=== PATIENT | female | born 1945 | race American Indian/Alaskan Native ===

== ENCOUNTER 2018-07-19 15:12 | Inpatient (IN) | payer MEDICARE ==
[2018-07-19 16:40] LABS: BASO # 0.1 K/uL (0.0-0.2); EOS # 0.1 K/uL (0.0-0.7); EOS % 1.6 % (0.0-4.0); HEMOGLOBIN 12.3 g/dL (11.0-16.0); LYMPH # 1.8 K/uL (1.0-4.3); LYMPH % 28.6 % (20.0-40.0); MEAN CELL VOLUME 85.9 fL (81.0-99.0); MEAN CORPUSCULAR HEMOGLOBIN 28.5 pg (27.0-31.0); MEAN CORPUSCULAR HGB CONC 33.2 g/dL (33.0-37.0); MEAN PLATELET VOLUME 8.2 fL (7.2-11.7); MONO # 0.6 K/uL (0.0-0.8); NEUT # 3.7 K/uL (1.8-7.0); NEUT % 59.8 % (50.0-75.0); RBC 4.33 Mil/uL (3.80-5.20); RED CELL DISTRIBUTION WIDTH 14.7 % (11.5-14.5); WHITE BLOOD COUNT 6.3 K/uL (4.8-10.8)
--- NOTE | 2018-07-19 16:52 | C.PDOC ---
History Of Present Illness 72-year-old female, presents to ED with with complaints of three-day duration of shortness of breath when she walks 1-2 blocks. Pt reports that shortness of breath improves when she rests. Normally she is able to walk 2-3 miles, and currently cannot do that. Pt was seen at Dr. Esquivel office today and was sent here for further evaluation. Denies chest pain, cough, fever, hemoptysis, back pain, or any other associated symptoms. Time Seen by Provider: 07/19/18 15:49 Chief Complaint (Nursing): Shortness Of Breath History Per: Patient History/Exam Limitations: no limitations Current Symptoms Are (Timing): Still Present Recent travel outside of the [place]: No Past Medical History Reviewed: Historical Data, Nursing Documentation, Vital Signs Vital Signs: Last Vital Signs Temp 98.1 F 07/19/18 15:22 Pulse 70 07/19/18 15:22 Resp 18 07/19/18 16:10 BP 145/85 07/19/18 15:22 Pulse Ox 93 L 07/19/18 17:22 - Medical History PMH: HTN Family History: States: No Known Family Hx - Social History Hx Alcohol Use: No Hx Substance Use: No - Immunization History Hx Tetanus Toxoid Vaccination: No Hx Influenza Vaccination: Yes Hx Pneumococcal Vaccination: No Review Of Systems Constitutional: Negative for: Fever, Chills Respiratory: Positive for: SOB with Excertion. Negative for: Cough Gastrointestinal: Negative for: Nausea, Vomiting Musculoskeletal: Negative for: Back Pain Neurological: Negative for: Weakness, Numbness Physical Exam - Physical Exam Appears: Non-toxic, No Acute Distress Skin: Normal Color, Warm, Dry, No Rash Head: Atraumatic, Normacephalic Eye(s): bilateral: Normal Inspection, PERRL, EOMI Nose: Normal Oral Mucosa: Moist Lips: Normal Appearing Neck: Normal ROM Chest: Symmetrical Cardiovascular: Rhythm Regular, No Murmur Respiratory: Normal Breath Sounds, No Decreased Breath Sounds, No Accessory Muscle Use, No Rales, No Rhonchi, No Wheezing Gastrointestinal/Abdominal: Soft, No Tenderness Extremity: Normal ROM, No Deformity Neurological/Psych: Oriented x3, Normal Speech ED Course And Treatment - Laboratory Results Result Diagrams: 07/19/18 16:35 07/19/18 16:35 ECG: Interpreted By Me, Viewed By Me ECG Rhythm: Sinus Rhythm ECG Interpretation: No Acute Changes Rate From EC O2 Sat by Pulse Oximetry: 93 Pulse Ox Interpretation: Abnormal - Radiology CXR: Interpreted by Me CXR Interpretation: Yes: No Acute Disease. No: Infiltrates Medical Decision Making Medical Decision Making: Plan: * CT Chest * Bloodwork * Chest X-Ray * Reassess and Disposition The case was discussed with Dr. Marion (PMD) who agrees to place the patient on tele Disposition - Disposition Disposition: HOSPITALIZED Disposition Time: 18:47 Condition: STABLE Forms: [employer] [facility] (German) - POA Present On Arrival: None - Clinical Impression Clinical Impression: Dyspnea - Scribe Statement The provider has reviewed the documentation as recorded by the Scribe (Ameya Batista) All medical record entries made by the Scribe were at my direction and personally dictated by me. I have reviewed the chart and agree that the record accurately reflects my personal performance of the history, physical exam, medical decision making, and the department course for this patient. I have also personally directed, reviewed, and agree with the discharge instructions and disposition.
[2018-07-19 16:53] LABS: ALB/GLOB RATIO 1.6 (1.0-2.1); ALBUMIN 4.4 g/dL (3.5-5.0); ALT/SGPT 28 U/L (9-52); AST/SGOT 25 U/L (14-36); BLOOD UREA NITROGEN 20 mg/dL (7-17); CALCIUM 10.4 mg/dl (8.6-10.4); GFR NON-AFRICAN AMERICAN > 60
--- NOTE | 2018-07-19 16:53 | RAD ---
Date of service: 07/19/2018 PROCEDURE: CHEST RADIOGRAPH, 1 VIEW HISTORY: SOB COMPARISON: None available. FINDINGS: LUNGS: No focal consolidation. PLEURA: No pneumothorax or pleural fluid seen. CARDIOVASCULAR: Atherosclerotic aortic calcifications. Cardiomediastinal silhouette enlarged. OSSEOUS STRUCTURES: Degenerative changes. VISUALIZED UPPER ABDOMEN: Normal. OTHER FINDINGS: None. IMPRESSION: No active disease.
[2018-07-19 17:05] LABS: B-TYPE NATRIURETIC PEPTIDE 637 pg/mL (0-900)
[2018-07-19] MEDS ORDERED: Iodixanol 320 MG/ML 100 ML BOTTLE IV ONE (17:26)
--- NOTE | 2018-07-19 17:58 | CT ---
Date of service: 07/19/2018 PROCEDURE: CT Chest with contrast (Pulmonary Angiogram) HISTORY: SOB, hypoxia COMPARISON: None available. TECHNIQUE: Axial computed tomography images were obtained of the chest in the pulmonary arterial phase of enhancement. Coronal and sagittal reformatted images were created and reviewed. Intravenous contrast dose: 100 mL Visipaque 320 Radiation dose: Total exam DLP = 483.3 mGy-cm. This CT exam was performed using one or more of the following dose reduction techniques: Automated exposure control, adjustment of the mA and/or kV according to patient size, and/or use of iterative reconstruction technique. FINDINGS: PULMONARY ARTERIES: Unremarkable. No pulmonary embolism. AORTA: No acute findings. Common origin of the brachiocephalic and left common carotid arteries. No thoracic aortic aneurysm. LUNGS: Small patchy opacities in the medial right lower lobe. No nodule, mass or pulmonary consolidation. PLEURAL SPACES: Trace right pleural effusion. No pneumothorax. HEART: Unremarkable. Cardiomegaly. No significant pericardial effusion. LYMPH NODES: No lymphadenopathy. BONES, CHEST WALL: Unremarkable. No fracture or destructive lesion OTHER FINDINGS: Unremarkable. IMPRESSION: Unremarkable CT pulmonary angiogram. No pulmonary embolus. Small patchy opacities in the medial right lower lobe, likely infectious/ inflammatory. Trace right pleural effusion.
--- NOTE | 2018-07-19 22:21 | CP.PCM.PN ---
Objective - Vital Signs/Intake and Output Vital Signs (last 24 hours): Temp Pulse Resp BP Pulse Ox 98.3 F 79 12 153/84 H 96 07/19/18 20:55 07/19/18 20:55 07/19/18 20:55 07/19/18 20:55 07/19/18 20:55 - Medications Medications: Current Medications Aspirin (Aspirin Chewable) 81 mg PO DAILY [facility] Enoxaparin Sodium (Lovenox) 40 mg SC DAILY [facility] Glimepiride (Amaryl) 2 mg PO ACB [facility] Insulin Human Regular (Novolin R) 0 unit SC ACHS [facility] PRN Reason: Protocol Lisinopril (Zestril) 20 mg PO DAILY [facility] Metformin HCl (Glucophage) 1,000 mg PO BIDCC [facility] Rosuvastatin Calcium (Crestor) 10 mg PO DAILY [facility] - Labs Labs: 07/19/18 16:35 07/19/18 16:35
[2018-07-19 23:11] LABS: CK-MB 0.58 ng/mL (0.0-3.38)
--- NOTE | 2018-07-19 23:21 | CP.PCM.CON ---
Past Patient History - Infectious Disease Hx of Infectious Diseases: None - Past Social History Smoking Status: Never Smoked - CARDIAC Hx Hypertension: Yes - ENDOCRINE/METABOLIC Hx Diabetes Mellitus Type 2: Yes - PSYCHIATRIC Hx Substance Use: No - SURGICAL HISTORY Hx Surgeries: No - ANESTHESIA Hx Anesthesia: No Meds Allergies/Adverse Reactions: Allergies Allergy/AdvReac Type Severity Reaction Status Date / Time No Known Allergies Allergy Verified 07/19/18 15:25 - Medications Medications: Current Medications Aspirin (Aspirin Chewable) 81 mg PO DAILY [facility] Enoxaparin Sodium (Lovenox) 40 mg SC DAILY [facility] Glimepiride (Amaryl) 2 mg PO ACB [facility] Insulin Human Regular (Novolin R) 0 unit SC ACHS [facility] PRN Reason: Protocol Lisinopril (Zestril) 20 mg PO DAILY [facility] Metformin HCl (Glucophage) 1,000 mg PO BIDCC [facility] Rosuvastatin Calcium (Crestor) 10 mg PO HS [facility] Results - Vital Signs Recent Vital Signs: Last Vital Signs Temp 98.3 F 07/19/18 20:55 Pulse 79 07/19/18 20:55 Resp 12 07/19/18 20:55 BP 153/84 H 07/19/18 20:55 Pulse Ox 96 07/19/18 20:55 - Labs Result Diagrams: 07/19/18 16:35 07/19/18 16:35 Labs: Laboratory Results - last 24 hr 07/19/18 07/19/18 07/19/18 16:35 16:35 22:34 WBC 6.3 RBC 4.33 Hgb 12.3 Hct 37.2 MCV 85.9 MCH 28.5 MCHC 33.2 RDW 14.7 H Plt Count 222 MPV 8.2 Neut % (Auto) 59.8 Lymph % (Auto) 28.6 Winkler % (Auto) 9.0 Eos % (Auto) 1.6 Baso % (Auto) 1.0 Neut # (Auto) 3.7 Lymph # (Auto) 1.8 Winkler # (Auto) 0.6 Eos # (Auto) 0.1 Baso # (Auto) 0.1 Sodium 142 Potassium 4.4 Chloride 105 Carbon Dioxide 30 Anion Gap 12 BUN 20 H Creatinine 0.7 Est GFR ( Amer) > 60 Est GFR (Non-Af Amer) > 60 Random Glucose 157 H Calcium 10.4 Total Bilirubin 1.2 AST 25 ALT 28 Alkaline Phosphatase 56 Total Creatine Kinase 83 CK-MB (Mass) 0.58 Troponin I < 0.0120 < 0.0120 NT-Pro-B Natriuret Pep 637 Total Protein 7.1 Albumin 4.4 Globulin 2.7 Albumin/Globulin Ratio 1.6
--- NOTE | 2018-07-20 05:37 | HP ---
Copied To: Pan Marion MD Attending MD: Pan Marion MD CHIEF COMPLAINT: Shortness of breath x3 days. HISTORY OF PRESENT ILLNESS: This is a 72-year-old female, well known to me with a history of hypertension, hyperlipidemia, nonsmoker, non-EtOH user who is compliant with her diet, medication, and followup. She also has a history of diabetes. The patient is normally able to walk and there is no limitation, but for the last few days, she has been able to walk only up to one block but even with that, she developed shortness of breath as she can barely carry herself too. She feels diaphoretic, weak, dizzy. She denied any chest pain or chest pressure. She denies any history of orthopnea or PND. She denies any history cough, sore throat, or running nose. According to the patient, she has a sister who is dying of multiple medical problems including malignancy, and she is not feeling well as well. She feels anxious. She feels depressed. She denied any cough, fever, hemoptysis, back pain, or any sneezing, itchy eyes or itchy nose. She denies any polyuria, polydipsia, or polyphagia. She denies any hematuria or pyuria. PAST MEDICAL HISTORY: Diabetes, hypertension, hyperlipidemia. SOCIAL HISTORY: Nonsmoker. Non-EtOH user. MEDICATIONS: Current medications at home are Zocor, metformin, lisinopril, Amaryl, and aspirin. PHYSICAL EXAMINATION: GENERAL: An elderly female in morbid distress, anxious. VITAL SIGNS: Blood pressure 126/72, pulse 73, respiratory rate 18, temperature 98. SKIN: Warm. Good turgor. No bruises. No purpura. No petechiae. HEENT: Atraumatic, normocephalic. Negative pallor. Negative jaundice. Extraocular movements are intact. NECK: Supple. No JVD. No lymph node. No thyromegaly. No carotid bruits. LUNGS: Bilaterally clear. No rales. No rhonchi. CARDIOVASCULAR SYSTEM: PMI in the fifth intercostal space. S1, S2 are regular. No heave. No thrill. ABDOMEN: Soft. Nontender. Bowel sounds are positive. No visceromegaly. RECTAL: Refused. PELVIS: Refused. EXTREMITIES: +1 pitting edema. ASSESSMENT: 1. The patient with a history of multiple problems. 2. Diabetes. 3. Hypertension. PLAN: 1. Admit. 2. Cardiac enzymes. 3. Echocardiogram. 4. Monitor the patient. Pan Marion MD
[2018-07-20 07:35] LABS: CK-MB 0.4 ng/mL (0.0-3.38); TROPONIN I 0.013 ng/mL (0.00-0.120)
[2018-07-20] MEDS: (Novolin R) Insulin Human Regular 100 units/ml vial SC SCH ×3 (08:34→21:20)
[2018-07-20] MEDS: Enoxaparin 40 mg Syringe SC SCH (09:37)
--- NOTE | 2018-07-20 14:54 | CP.PCM.PN ---
<Spencer Teresa - Last Filed: 07/20/18 18:03> Subjective - Date & Time of Evaluation Date of Evaluation: 07/20/18 Time of Evaluation: 15:56 - Subjective Subjective: PGY 3 Cardiology Progress Note- Dr. Louis's service Patient seen and examined in no apparent acute distress. Patient states that her shortness of breath occurred with activity. She denies specific chest pain or palpitations at this time. Objective - Vital Signs/Intake and Output Vital Signs (last 24 hours): Temp Pulse Resp BP Pulse Ox 98.6 F 66 18 131/87 98 07/20/18 08:31 07/20/18 08:31 07/20/18 08:31 07/20/18 08:31 07/20/18 12:00 Intake and Output: 07/20/18 07/20/18 06:59 18:59 Intake Total 100 Balance 100 - Medications Medications: Current Medications Aspirin (Aspirin Chewable) 81 mg PO DAILY [facility] Last Admin: 07/20/18 09:38 Dose: 81 mg Enoxaparin Sodium (Lovenox) 40 mg SC DAILY [facility] Last Admin: 07/20/18 09:37 Dose: 40 mg Glimepiride (Amaryl) 2 mg PO ACB [facility] Last Admin: 07/20/18 08:36 Dose: 2 mg Insulin Human Regular (Novolin R) 0 unit SC [facility] PRN Reason: Protocol Last Admin: 07/20/18 08:34 Dose: Not Given Lisinopril (Zestril) 20 mg PO DAILY [facility] Last Admin: 07/20/18 09:38 Dose: 20 mg Metformin HCl (Glucophage) 1,000 mg PO BIDCC [facility] Last Admin: 07/20/18 08:36 Dose: 1,000 mg Pneumococcal Polyvalent Vaccine (Pneumovax 23 Vaccine) 0.5 ml IM .ONCE ONE Stop: 07/21/18 10:01 Rosuvastatin Calcium (Crestor) 10 mg PO [facility] - Labs Labs: 07/19/18 16:35 07/19/18 16:35 - Constitutional Appears: Non-toxic, No Acute Distress - Head Exam Head Exam: ATRAUMATIC, NORMAL INSPECTION - Eye Exam Eye Exam: EOMI, Normal appearance - ENT Exam ENT Exam: Mucous Membranes Moist - Neck Exam Neck Exam: Full ROM - Respiratory Exam Respiratory Exam: NORMAL BREATHING PATTERN - Cardiovascular Exam Cardiovascular Exam: +S1, +S2 - GI/Abdominal Exam GI & Abdominal Exam: Soft, Normal Bowel Sounds - Extremities Exam Extremities Exam: Full ROM, Normal Capillary Refill - Back Exam Back Exam: Full ROM, NORMAL INSPECTION - Neurological Exam Neurological Exam: Alert, Awake, Oriented x3 - Psychiatric Exam Psychiatric exam: Normal Affect, Normal Mood - Skin Skin Exam: Dry, Normal Color, Warm Assessment and Plan (1) Dyspnea Assessment & Plan: SINGH negative x 3 BNP- 637 negative EKG shows NSR at this time with signs of prior inferior infarct . Prior EKGs reviewed in the record as far back as 2011 and 2008 which show similar changes. In light of continued dyspnea with activity, need to rule out cardiac etiology. Will schedule for Stress testing at this time. F/U Echo Report. On prelim view- there are signs of questionable dilation of ascending aorta. Chest XRAY performed- haziness noted in the lower lung hodgson. Costophrenic angles not clearly noted. Chest CT- Trace right pleural effusion noted. Cardiomegaly noted. No significant pericardial effusion. No appreciable pulmonary emboli noted. There are signs of questionable dilation of thoracic aorta. Will need to follow up with radiology for a second reading to confirm. Status: Chronic (2) Diabetes mellitus Assessment & Plan: Metformin 1,000 mg PO BID Glimepiride 2 mg PO daily Zestril 20 mg daily Accuchecks Status: Chronic (3) Prophylactic measure Assessment & Plan: SCDs No GI Prophylaxis indicated at this time Status: Acute <Eddie Louis - Last Filed: 07/20/18 21:42> Objective - Vital Signs/Intake and Output Vital Signs (last 24 hours): Temp Pulse Resp BP Pulse Ox 97.7 F 69 20 147/86 98 07/20/18 15:00 07/20/18 15:00 07/20/18 15:00 07/20/18 15:00 07/20/18 15:00 - Medications Medications: Current Medications Aspirin (Aspirin Chewable) 81 mg PO DAILY [facility] Last Admin: 07/20/18 09:38 Dose: 81 mg Enoxaparin Sodium (Lovenox) 40 mg SC DAILY [facility] Last Admin: 07/20/18 09:37 Dose: 40 mg Glimepiride (Amaryl) 2 mg PO ACB [facility] Last Admin: 07/20/18 08:36 Dose: 2 mg Insulin Human Regular (Novolin R) 0 unit SC [facility] PRN Reason: Protocol Last Admin: 07/20/18 21:20 Dose: Not Given Lisinopril (Zestril) 20 mg PO DAILY [facility] Last Admin: 07/20/18 09:38 Dose: 20 mg Metformin HCl (Glucophage) 1,000 mg PO BIDCC [facility] Last Admin: 07/20/18 18:00 Dose: 1,000 mg Pneumococcal Polyvalent Vaccine (Pneumovax 23 Vaccine) 0.5 ml IM .ONCE ONE Stop: 07/21/18 10:01 Rosuvastatin Calcium (Crestor) 10 mg PO [facility] Last Admin: 07/20/18 21:19 Dose: 10 mg - Labs Labs: 07/19/18 16:35 07/19/18 16:35 Assessment and Plan - Assessment and Plan (Free Text) Assessment: Patient seen and evaluated personally by vt Plan of care d/w the medical or surgical instrument maker and as documented
--- NOTE | 2018-07-20 18:21 | CARD ---
APPROVED REPORT Date of service: 07/20/2018 EXAM: Two-dimensional and M-mode echocardiogram with Doppler and color Doppler. Other Information Quality : GoodRhythm : INDICATION Dyspnea 2D DIMENSIONS IVSd1.2 (0.7-1.1cm)LVDd4.4 (3.9-5.9cm) PWd1.2 (0.7-1.1cm)LVDs3.2 (2.5-4.0cm) FS (%) 27.3 %LVEF (%)53.4 (>50%) M-Mode DIMENSIONS Left Atrium (MM)3.87 (2.5-4.0cm)IVSd1.16 (0.7-1.1cm) Aortic Root3.39 (2.2-3.7cm)LVDd5.32 (4.0-5.6cm) Aortic Cusp Exc.2.61 (1.5-2.0cm)PWd1.18 (0.7-1.1cm) FS (%) 30 %LVDs3.74 (2.0-3.8cm) LVEF (%)56 (>50%) Aortic Valve AI P 1/2 [id number] Mitral Valve MV E Yvdgdarg58.1cm/sMV A Gnfbpfzc48.3cm/sE/A ratio1.3 TDI E/Lateral E'0.0E/Medial E'0.0 Tricuspid Valve TR Peak [id number]/sTR Peak Gr.[id number] LEFT VENTRICLE The Left Ventricle is mildly dilated. There is normal left ventricular wall thickness. The left ventricular systolic function is normal. The left ventricular ejection fraction is within the normal range. There is normal LV segmental wall motion. The left ventricular diastolic function is normal. RIGHT VENTRICLE The right ventricle is normal size. The right ventricular systolic function is normal. ATRIA The left atrium is borderline dilated. The right atrium size is normal. AORTIC VALVE The aortic valve is slightly calcified but opens well. There is trace aortic regurgitation. MITRAL VALVE The mitral valve is normal in structure. Mitral regurgitation is trace to mild. TRICUSPID VALVE The tricuspid valve is normal in structure. There is moderate tricuspid regurgitation. Right ventricular systolic pressure is estimated at - 42 mmHg. There is mild pulmonary hypertension. PULMONIC VALVE The pulmonary valve is normal in structure. There is mild pulmonic valvular regurgitation. GREAT VESSELS The aortic root displays mild to moderate sclerocalcific changes The IVC is normal in size and collapses >50% with inspiration. PERICARDIAL EFFUSION There is no pericardial effusion. <Conclusion> The Left Ventricle is mildly dilated. Normal bi-ventricular function The left atrium is borderline dilated. There is trace aortic regurgitation. Mitral regurgitation is trace to mild. There is moderate tricuspid regurgitation. Right ventricular systolic pressure is estimated at - 42 mmHg compatible with mild pulmonary hypertension. The aortic root displays mild to moderate sclerocalcific changes There is no pericardial effusion.
--- NOTE | 2018-07-20 23:19 | CP.PCM.PN ---
Objective - Vital Signs/Intake and Output Vital Signs (last 24 hours): Temp Pulse Resp BP Pulse Ox 97.7 F 69 20 147/86 98 07/20/18 15:00 07/20/18 15:00 07/20/18 15:00 07/20/18 15:00 07/20/18 15:00 - Medications Medications: Current Medications Aspirin (Aspirin Chewable) 81 mg PO DAILY [facility] Last Admin: 07/20/18 09:38 Dose: 81 mg Enoxaparin Sodium (Lovenox) 40 mg SC DAILY [facility] Last Admin: 07/20/18 09:37 Dose: 40 mg Glimepiride (Amaryl) 2 mg PO ACB [facility] Last Admin: 07/20/18 08:36 Dose: 2 mg Insulin Human Regular (Novolin R) 0 unit SC [facility] PRN Reason: Protocol Last Admin: 07/20/18 21:20 Dose: Not Given Lisinopril (Zestril) 20 mg PO DAILY [facility] Last Admin: 07/20/18 09:38 Dose: 20 mg Metformin HCl (Glucophage) 1,000 mg PO BIDCC [facility] Last Admin: 07/20/18 18:00 Dose: 1,000 mg Pneumococcal Polyvalent Vaccine (Pneumovax 23 Vaccine) 0.5 ml IM .ONCE ONE Stop: 07/21/18 10:01 Rosuvastatin Calcium (Crestor) 10 mg PO [facility] Last Admin: 07/20/18 21:19 Dose: 10 mg - Labs Labs: 07/19/18 16:35 07/19/18 16:35
--- NOTE | 2018-07-21 03:46 | PN ---
Copied To: Pan Marion MD Attending MD: Pan Marion MD DATE: 07/20/2018 SUBJECTIVE: The patient is less short of breath, less chest pain. No nausea or vomiting. PHYSICAL EXAMINATION: VITAL SIGNS: Blood pressure 147/86, pulse 69, respiratory rate 20, temperature 97.7. LUNGS: Clear. CVS: S1 and S2 regular. ABDOMEN: Soft. ASSESSMENT AND PLAN: Chest pain, rule out myocardial infraction. Cardiac enzymes so far are negative. The patient had EKG which is normal. Echocardiogram shows dilated left atrium, trace aortic regurgitation, and right ventricular systolic pressure is elevated consistent with mild pulmonary hypertension, and we are waiting for a stress Myoview in a.m. Pan Marion MD
[2018-07-21] MEDS: (Novolin R) Insulin Human Regular 100 units/ml vial SC SCH ×3 (07:52→22:12)
[2018-07-21] MEDS: Enoxaparin 40 mg Syringe SC SCH (09:33)
[2018-07-21] MEDS: Pneumococcal 23-Valent Vaccine IM ONE ×2 (09:33→09:36)
--- NOTE | 2018-07-21 13:47 | CP.PCM.PN ---
<JovitareginaSpencer arauz - Last Filed: 07/21/18 13:42> Subjective - Date & Time of Evaluation Date of Evaluation: 07/21/18 Time of Evaluation: 07:50 - Subjective Subjective: PGY 3 Cardiology Progress Note- Dr. Louis's service Patient seen and examined in no apparent acute distress. Patient states that she was able to ambulate around the floor earlier this morning. Patient reiterated that her symptoms were exacerbated with activity. She states that it was not until a few days ago that she was having the shortness of breath. Patient went for stress test earlier today. Patient had some shortness of breath with the exam with added elevation resistance, but was able to complete the test. She denies chest pain, palpitations, nausea, vomiting, diarrhea at this time. Objective - Vital Signs/Intake and Output Vital Signs (last 24 hours): Temp Pulse Resp BP Pulse Ox 98.0 F 76 18 134/89 95 07/21/18 07:00 07/21/18 13:40 07/21/18 13:40 07/21/18 13:40 07/21/18 13:40 - Medications Medications: Current Medications Aspirin (Aspirin Chewable) 81 mg PO DAILY [facility] Last Admin: 07/21/18 09:33 Dose: 81 mg Enoxaparin Sodium (Lovenox) 40 mg SC DAILY [facility] Last Admin: 07/21/18 09:33 Dose: 40 mg Glimepiride (Amaryl) 2 mg PO ACB [facility] Last Admin: 07/21/18 07:55 Dose: Not Given Insulin Human Regular (Novolin R) 0 unit SC [facility] PRN Reason: Protocol Last Admin: 07/21/18 07:52 Dose: Not Given Lisinopril (Zestril) 20 mg PO DAILY [facility] Last Admin: 07/21/18 09:33 Dose: 20 mg Metformin HCl (Glucophage) 1,000 mg PO BIDCC [facility] Last Admin: 07/21/18 07:55 Dose: Not Given Rosuvastatin Calcium (Crestor) 10 mg PO HS [facility] Last Admin: 07/20/18 21:19 Dose: 10 mg - Labs Labs: 07/19/18 16:35 07/19/18 16:35 - Constitutional Appears: Non-toxic, No Acute Distress - Head Exam Head Exam: ATRAUMATIC, NORMAL INSPECTION - Eye Exam Eye Exam: EOMI, Normal appearance Pupil Exam: NORMAL ACCOMODATION - ENT Exam ENT Exam: Mucous Membranes Moist - Neck Exam Neck Exam: Full ROM - Respiratory Exam Respiratory Exam: NORMAL BREATHING PATTERN - Cardiovascular Exam Cardiovascular Exam: +S1, +S2. absent: Tachycardia - GI/Abdominal Exam GI & Abdominal Exam: Soft, Normal Bowel Sounds - Extremities Exam Extremities Exam: Full ROM, Pedal Edema (1+) - Back Exam Back Exam: NORMAL INSPECTION - Neurological Exam Neurological Exam: Alert, Awake, Oriented x3 Neuro motor strength exam: Left Upper Extremity: 5, Right Upper Extremity: 5, Left Lower Extremity: 5, Right Lower Extremity: 5 - Psychiatric Exam Psychiatric exam: Normal Affect, Normal Mood - Skin Skin Exam: Dry, Normal Color, Warm Assessment and Plan (1) Dyspnea Status: Chronic (2) Diabetes mellitus Status: Chronic (3) Prophylactic measure Status: Acute - Assessment and Plan (Free Text) Assessment: Dyspnea Assessment & Plan: SINGH negative x 3 BNP- 637 negative EKG shows NSR at this time with signs of prior inferior infarct . Prior EKGs reviewed in the record as far back as 2011 and 2008 which show similar changes. In light of continued dyspnea with activity, need to rule out cardiac etiology. Nuclear stress testing 07/21- F/U report Echo - On prelim view- there are signs of questionable dilation of ascending aorta. EF greater than 56%. LV mildly dilated. Normal Bi- ventricular function. LA borderline dilated. Trace aortic regurgitation. Moderate tricuspid regurg. Mild pulm HTN noted. Aortic root displays mild-moderate sclerocalcifc changes. No pericardial effusion. Refer to complete report. Chest XRAY performed- haziness noted in the lower lung hodgson. Costophrenic angles not clearly noted. Chest CT- Trace right pleural effusion noted. Cardiomegaly noted. No appreciable pulmonary emboli noted. There are signs of questionable dilation of thoracic aorta. After speaking with Radiologist, aorta does appear dilated to approx 4.3 cm. Patient requires surveillance. Elevate height of bed. Continued monitoring. Status: Chronic Diabetes mellitus Assessment & Plan: Metformin 1,000 mg PO BID Glimepiride 2 mg PO daily Zestril 20 mg daily Accuchecks Status: Chronic Prophylactic measure Assessment & Plan: SCDs No GI Prophylaxis indicated at this time Status: Acute <Eddie Louis - Last Filed: 07/21/18 22:43> Objective - Vital Signs/Intake and Output Vital Signs (last 24 hours): Temp Pulse Resp BP Pulse Ox 97.8 F 70 20 129/81 95 07/21/18 15:12 07/21/18 20:00 07/21/18 15:12 07/21/18 15:12 07/21/18 15:12 Intake and Output: 07/21/18 07/22/18 18:59 06:59 Intake Total 100 Balance 100 - Medications Medications: Current Medications Aspirin (Aspirin Chewable) 81 mg PO DAILY [facility] Last Admin: 07/21/18 09:33 Dose: 81 mg Enoxaparin Sodium (Lovenox) 40 mg SC DAILY [facility] Last Admin: 07/21/18 09:33 Dose: 40 mg Glimepiride (Amaryl) 2 mg PO ACB [facility] Last Admin: 07/21/18 07:55 Dose: Not Given Insulin Human Regular (Novolin R) 0 unit SC ACHS [facility] PRN Reason: Protocol Last Admin: 07/21/18 22:12 Dose: Not Given Lisinopril (Zestril) 20 mg PO DAILY [facility] Last Admin: 07/21/18 09:33 Dose: 20 mg Metformin HCl (Glucophage) 1,000 mg PO BIDCC [facility] Last Admin: 07/21/18 17:47 Dose: 1,000 mg Rosuvastatin Calcium (Crestor) 10 mg PO HS [facility] Last Admin: 07/21/18 21:16 Dose: 10 mg - Labs Labs: 07/19/18 16:35 07/19/18 16:35 Assessment and Plan - Assessment and Plan (Free Text) Assessment: Patient seen and evaluated personally by nv Plan of care d/w the resident and as documented Stress test: Negative Dyspnea unexplained [facility] tomorrow
--- NOTE | 2018-07-21 14:17 | CARD ---
APPROVED REPORT Date of service: 07/19/2018 EKG Measurement Heart [id number] <Conclusion> Normal sinus rhythm Normal ECG
[2018-07-21 16:18] VITALS: RESP 20
--- NOTE | 2018-07-21 18:02 | CP.PCM.CON ---
History of Present Illness - History of Present Illness History of Present Illness: reason for consultation: shortness of breath on exertion Patient is 72-year-old female with history of hypertension who presented to emergency room complaining of dyspnea on exertion. Patient denies cough, denies fever chills, denies chest pain, denies weight loss. Patient also complaining of nocturnal snoring but does not feel tired or sleepy during the daytime. Patient went for stress test earlier today. Patient had some shortness of breath with the exam with added elevation resistance, but was able to complete the test. She denies chest pain, palpitations, nausea, vomiting, diarrhea at this time. Review of Systems - Review of Systems All systems: reviewed and no additional remarkable complaints except (dyspnea on exertion) Past Patient History - Infectious Disease Hx of Infectious Diseases: None - Past Social History Smoking Status: Never Smoked - CARDIAC Hx Hypertension: Yes - ENDOCRINE/METABOLIC Hx Diabetes Mellitus Type 2: Yes - HEMATOLOGICAL/ONCOLOGICAL Hx Blood Disorders: No - MUSCULOSKELETAL/RHEUMATOLOGICAL Hx Falls: No - PSYCHIATRIC Hx Substance Use: No - SURGICAL HISTORY Hx Surgeries: No - ANESTHESIA Hx Anesthesia: No Meds Allergies/Adverse Reactions: Allergies Allergy/AdvReac Type Severity Reaction Status Date / Time No Known Allergies Allergy Verified 07/19/18 15:25 - Medications Medications: Current Medications Aspirin (Aspirin Chewable) 81 mg PO DAILY [facility] Last Admin: 07/21/18 09:33 Dose: 81 mg Enoxaparin Sodium (Lovenox) 40 mg SC DAILY [facility] Last Admin: 07/21/18 09:33 Dose: 40 mg Glimepiride (Amaryl) 2 mg PO ACB [facility] Last Admin: 07/21/18 07:55 Dose: Not Given Insulin Human Regular (Novolin R) 0 unit SC [facility] PRN Reason: Protocol Last Admin: 07/21/18 17:47 Dose: Not Given Lisinopril (Zestril) 20 mg PO DAILY [facility] Last Admin: 07/21/18 09:33 Dose: 20 mg Metformin HCl (Glucophage) 1,000 mg PO BIDCC [facility] Last Admin: 07/21/18 17:47 Dose: 1,000 mg Rosuvastatin Calcium (Crestor) 10 mg PO HS [facility] Last Admin: 07/20/18 21:19 Dose: 10 mg Physical Exam - Head Exam Head Exam: ATRAUMATIC, NORMOCEPHALIC - Eye Exam Eye Exam: Normal appearance - ENT Exam ENT Exam: Mucous Membranes Moist - Neck Exam Neck exam: Positive for: Normal Inspection - Respiratory Exam Respiratory Exam: Clear to Auscultation Bilateral - Cardiovascular Exam Cardiovascular Exam: REGULAR RHYTHM - GI/Abdominal Exam GI & Abdominal Exam: Normal Bowel Sounds, Soft - Extremities Exam Extremities exam: Positive for: normal inspection Results - Vital Signs Recent Vital Signs: Last Vital Signs Temp 97.8 F 07/21/18 15:12 Pulse 70 07/21/18 16:09 Resp 20 07/21/18 15:12 BP 129/81 07/21/18 15:12 Pulse Ox 95 07/21/18 15:12 - Labs Result Diagrams: 07/19/18 16:35 07/19/18 16:35 Labs: Laboratory Results - last 24 hr 07/21/18 16:52 POC Glucose (mg/dL) 203 H Assessment & Plan (1) Dyspnea Status: Chronic Comment: patient complaining of nocturnal snoring and sleep apnea needs to be ruled out. Followup stress test. Pulmonary function test as outpatient. CAT scan of the chest showed no pulmonary embolism but small infiltrate in the right middle lobe. Patient denies cough denies fever and no elevated white count.
--- NOTE | 2018-07-21 20:43 | CP.PCM.PN ---
Objective - Vital Signs/Intake and Output Vital Signs (last 24 hours): Temp Pulse Resp BP Pulse Ox 97.8 F 70 20 129/81 95 07/21/18 15:12 07/21/18 20:00 07/21/18 15:12 07/21/18 15:12 07/21/18 15:12 Intake and Output: 07/21/18 07/22/18 18:59 06:59 Intake Total 100 Balance 100 - Medications Medications: Current Medications Aspirin (Aspirin Chewable) 81 mg PO DAILY [facility] Last Admin: 07/21/18 09:33 Dose: 81 mg Enoxaparin Sodium (Lovenox) 40 mg SC DAILY [facility] Last Admin: 07/21/18 09:33 Dose: 40 mg Glimepiride (Amaryl) 2 mg PO ACB [facility] Last Admin: 07/21/18 07:55 Dose: Not Given Insulin Human Regular (Novolin R) 0 unit SC [facility] PRN Reason: Protocol Last Admin: 07/21/18 17:47 Dose: Not Given Lisinopril (Zestril) 20 mg PO DAILY [facility] Last Admin: 07/21/18 09:33 Dose: 20 mg Metformin HCl (Glucophage) 1,000 mg PO BIDCC [facility] Last Admin: 07/21/18 17:47 Dose: 1,000 mg Rosuvastatin Calcium (Crestor) 10 mg PO HS [facility] Last Admin: 07/20/18 21:19 Dose: 10 mg - Labs Labs: 07/19/18 16:35 07/19/18 16:35
[2018-07-22] MEDS: (Novolin R) Insulin Human Regular 100 units/ml vial SC SCH ×4 (07:38→22:32)
--- NOTE | 2018-07-22 08:20 | PN ---
Copied To: Pan Marion MD Attending MD: Pan Marion MD DATE: 07/21/2018 SUBJECTIVE: The patient has decreased chest pain. She is still anxious. Echocardiogram is normal with mild LVH. PHYSICAL EXAMINATION: VITAL SIGNS: BP 129/81, pulse 73, respiratory rate 20, temperature 97.8. LUNGS: Clear. CVS: S1 and S2 regular. ABDOMEN: Soft. ASSESSMENT: 1. Chest pain, rule out myocardial infraction. 2. Anxiety. 3. Diabetes. 4. Hyperlipidemia. PLAN: Admit. Detailed order, pending cardiology workup. Pan Marion MD
[2018-07-22 10:14] LABS: PROTHROMBIN TIME 11.3 SECONDS (9.7-12.2)
[2018-07-22] MEDS ORDERED: Lidocaine 2% MPF (5 ml) Inj ONE ×3 (11:03→11:35)
[2018-07-22] MEDS ORDERED: Midazolam 2 MG/2 ML VIAL ONE (11:06)
[2018-07-22] MEDS ORDERED: Iodixanol 320 MG/ML 100 ML BOTTLE IV ONE (11:43)
[2018-07-22 12:20] LABS: ARTERIAL BLOOD GAS HCO3 20.6 mmol/L (21-28); ARTERIAL BLOOD GAS HEMOGLOBIN 9.6 g/dL (11.7-17.4); ARTERIAL BLOOD GAS O2 SAT 95.6 % (95-98); ARTERIAL BLOOD GAS PCO2 33 mm/Hg (35-45); ARTERIAL BLOOD GAS PH 7.37 (7.35-7.45); ARTERIAL BLOOD GAS PO2 65 mm/Hg (80-100); ARTERIAL BLOOD GAS TCO2 20.1 mmol/L (22-28)
[2018-07-22 12:24] LABS: ARTERIAL BLOOD GAS HCO3 24.7 mmol/L (21-28); ARTERIAL BLOOD GAS HEMOGLOBIN 11.3 g/dL (11.7-17.4); ARTERIAL BLOOD GAS O2 SAT 76.6 % (95-98); ARTERIAL BLOOD GAS PCO2 48 mm/Hg (35-45); ARTERIAL BLOOD GAS PH 7.35 (7.35-7.45); ARTERIAL BLOOD GAS PO2 37 mm/Hg (80-100)
[2018-07-22 12:30] LABS: VENOUS BLOOD GAS BASE EXCESS -2.7 mmol/L (0.0-2.0); VENOUS BLOOD GAS PCO2 40 mmHg (40-60); VENOUS BLOOD GAS PO2 39 mm/Hg (30-55); VENOUS BLOOD PH 7.36 (7.32-7.43)
[2018-07-22] MEDS ORDERED: Sodium Chloride 0.45% 1,000 ML IV SCH (12:30)
[2018-07-22 12:34] LABS: VENOUS BLOOD GAS PCO2 37 mmHg (40-60); VENOUS BLOOD GAS PO2 42 mm/Hg (30-55); VENOUS BLOOD PH 7.31 (7.32-7.43)
[2018-07-22 12:39] LABS: VENOUS BLOOD GAS BASE EXCESS -3.5 mmol/L (0.0-2.0); VENOUS BLOOD GAS PCO2 44 mmHg (40-60); VENOUS BLOOD GAS PO2 34 mm/Hg (30-55); VENOUS BLOOD PH 7.32 (7.32-7.43)
--- NOTE | 2018-07-22 22:05 | CP.PCM.PN ---
Subjective - Date & Time of Evaluation Date of Evaluation: 07/22/18 Time of Evaluation: 22:04 - Subjective Subjective: Patient s/p [facility] Severe Pulmonary HTN Hypoxemia Normal EF Normal Coronaries Pulmonary eval by Dr. Hathaway Objective - Vital Signs/Intake and Output Vital Signs (last 24 hours): Temp Pulse Resp BP Pulse Ox 97.5 F L 106 H 20 153/82 H 98 07/22/18 15:30 07/22/18 20:05 07/22/18 15:30 07/22/18 20:05 07/22/18 15:30 - Medications Medications: Current Medications Aspirin (Aspirin Chewable) 81 mg PO DAILY [facility] Last Admin: 07/21/18 09:33 Dose: 81 mg Enoxaparin Sodium (Lovenox) 40 mg SC DAILY [facility] Last Admin: 07/21/18 09:33 Dose: 40 mg Glimepiride (Amaryl) 2 mg PO ACB [facility] Last Admin: 07/22/18 07:37 Dose: Not Given Sodium Chloride (Sodium Chloride 0.45%) 1,000 mls @ 40 mls/hr IV .Q24H [facility] Stop: 07/23/18 00:31 Insulin Human Regular (Novolin R) 0 unit SC ACHS [facility] PRN Reason: Protocol Last Admin: 07/22/18 16:42 Dose: Not Given Lisinopril (Zestril) 20 mg PO DAILY [facility] Last Admin: 07/22/18 09:42 Dose: 20 mg Metformin HCl (Glucophage) 1,000 mg PO BIDCC [facility] Last Admin: 07/21/18 17:47 Dose: 1,000 mg Rosuvastatin Calcium (Crestor) 10 mg PO HS [facility] Last Admin: 07/21/18 21:16 Dose: 10 mg - Labs Labs: 07/19/18 16:35 07/19/18 16:35 PT 11.3 SECONDS (9.7-12.2) 07/22/18 10:02 INR 1.0 07/22/18 10:02 APTT 41 SECONDS (21-34) H 07/22/18 10:02
--- NOTE | 2018-07-23 04:59 | CON ---
Copied To: Bhargav Eden MD Attending MD: Bhargav Eden MD DATE: 07/22/2018 PSYCHIATRIC CONSULTATION CHIEF COMPLAINT AND REASON FOR CONSULTATION: The patient was referred by Dr. Marion. This patient is complaining of increasing anxiety. HISTORY OF PRESENT ILLNESS: This is a case of 72-year-old female, a patient of Dr. Marion with history of hypertension, hyperlipidemia. The patient has history of diabetes. The patient was admitted because of feeling short of breath. The patient was admitted for treatment of dyspnea on exertion and weakness. The patient was referred for co-management as the patient has been complaining of anxiety. The patient was seen today. States that she is feeling much better. She says she was very nervous because she went for cardiac catheterization, and later, she was not explained very well about the details of the procedure. She was feeling shocked and nervous as she went to the operating room. Patient did signed consent.for the procedure. The patient states that the procedure went well. She was seen today in her room with her , and that she is feeling much better. She is hopeful that she will be able to go back home. She is walking and her shortness of breath has improved. PAST MEDICAL HISTORY: History of hypertension. The patient has history of diabetes, history of hyperlipidemia. PAST PSYCHIATRIC HISTORY: denies any ALLERGIES: THE PATIENT HAS NO KNOWN ALLERGIES. DRUG AND ALCOHOL HISTORY: Denies any stated. PSYCHOSOCIAL HISTORY: The patient is retired. She lives with her family. PHYSICAL EXAMINATION: VITAL SIGNS: Temperature is 97.5, pulse is 69, blood pressure 160/80, respirations 20, oxygen saturation is 98%. CURRENT MEDICATIONS: The patient is taking include glimepiride, aspirin, rosuvastatin, metformin, Lovenox, lisinopril. The patient had cardiac cath done by Dr. Louis, and the patient states she stayed in bed for 6 hours to recover. REVIEW OF SYSTEMS: GENERAL: The patient is alert and oriented x3, seen in her room. She is much calmer now. SKIN: No diaphoresis. HEENT: No headache. No dizziness. No shortness of breath. CARDIOVASCULAR: No palpitation. GASTROINTESTINAL: She is eating well. EXTREMITIES: Moves her extremities. She states she has been walking better since admission. NEUROLOGIC: Alert and oriented x3. GENITOURINARY: No dysuria. MENTAL STATUS EXAMINATION: Elderly female who looks stated age. Oriented x3. Mood is much calmer. Affect is reactive. Speech is spontaneous. Thought process, coherent. Thought content, no overt psychosis. No suicidal or homicidal ideation. Attention and memory seem to be fair. Insight and judgment are fair. Impulse control is fair. IMPRESSION: Anxiety disorder, not otherwise specified. PLAN AND RECOMMENDATION: The patient was seen, meds reviewed. Continue present management. The patient doesn't need any psych meds at this time. The patient was advised if she goes for another procedure, the patient is advised to ask for more details and ask the staff to explain the procedure further in layman's term so she will be more relaxed before going to the procedure. Bhargav Eden MD Joquinn # [phone] [email or web address]
[2018-07-23] MEDS: (Novolin R) Insulin Human Regular 100 units/ml vial SC SCH ×2 (06:45→12:30)
[2018-07-23 07:24] LABS: HEMOGLOBIN 13.2 g/dL (11.0-16.0); MEAN CELL VOLUME 86.2 fL (81.0-99.0); MEAN CORPUSCULAR HEMOGLOBIN 28.5 pg (27.0-31.0); MEAN CORPUSCULAR HGB CONC 33.1 g/dL (33.0-37.0); MEAN PLATELET VOLUME 7.7 fL (7.2-11.7); RBC 4.63 Mil/uL (3.80-5.20); RED CELL DISTRIBUTION WIDTH 14.2 % (11.5-14.5); WHITE BLOOD COUNT 5.8 K/uL (4.8-10.8)
[2018-07-23 07:32] LABS: BLOOD UREA NITROGEN 14 mg/dL (7-17); CALCIUM 10.5 mg/dl (8.6-10.4); GFR NON-AFRICAN AMERICAN > 60
[2018-07-23 08:29] VITALS: O2SAT 95
--- NOTE | 2018-07-23 08:47 | CP.PCM.PN ---
Subjective - Date & Time of Evaluation Date of Evaluation: 07/23/18 Time of Evaluation: 08:47 - Subjective Subjective: -FOLLOW UP WITH DR. BILLS OR YOUR PRIMARY DOCTOR IN THE OFFICE WITHIN 5-7 DAYS ---CALL THE OFFICE FOR APPOINTMENT. -FOLLOW UP WITH DR. HENELY (PULMONOLOGY) IN THE OFFICE WITHIN 10-14 DAYS---CALL FOR APPOINTMENT. -FOLLOW UP WITH DR. CÁRDENAS (CARDIOLOGY) IN THE OFFICE IN 3 MONTHS---CALL FOR AN APPOINTMENT, -CONTINUE HOME MEDICATIONS USUAL. IT IS VERY IMPORTANT THAT YOU TAKE THE ROSUVASTATIN AND LISINOPRIL. -YOU DO NOT NEED TO CONTINUE BABY ASPIRIN PER DR. CÁRDENAS'S RECOMMENDATIONS. -NEW PRESCRIPTION PER DR. CÁRDENAS INCLUDE THE FOLLOWIN) METOPROLOL 12.5 MG---TAKE THE 1/2 TABLET BY MOUTH ONCE A DAY. -FOR FURTHER CONCERNS OR QUESTIONS, CONTACT DR. BILLS. Objective - Vital Signs/Intake and Output Vital Signs (last 24 hours): Temp Pulse Resp BP Pulse Ox 97.9 F 96 H 20 159/94 H 95 07/23/18 07:20 07/23/18 07:20 07/23/18 07:20 07/23/18 07:20 07/23/18 07:20 - Medications Medications: Current Medications Aspirin (Aspirin Chewable) 81 mg PO DAILY [facility] Last Admin: 07/21/18 09:33 Dose: 81 mg Enoxaparin Sodium (Lovenox) 40 mg SC DAILY [facility] Last Admin: 07/21/18 09:33 Dose: 40 mg Glimepiride (Amaryl) 2 mg PO ACB [facility] Last Admin: 07/23/18 08:16 Dose: 2 mg Insulin Human Regular (Novolin R) [address] [facility] PRN Reason: Protocol Last Admin: 07/23/18 06:45 Dose: Not Given Lisinopril (Zestril) 20 mg PO DAILY [facility] Last Admin: 07/22/18 09:42 Dose: 20 mg Metformin HCl (Glucophage) 1,000 mg PO BIDCC [facility] Last Admin: 07/21/18 17:47 Dose: 1,000 mg Rosuvastatin Calcium (Crestor) 10 mg PO HS [facility] Last Admin: 07/22/18 22:36 Dose: 10 mg - Labs Labs: 07/23/18 07:05 07/23/18 07:05 PT 11.3 SECONDS (9.7-12.2) 07/22/18 10:02 INR 1.0 07/22/18 10:02 APTT 41 SECONDS (21-34) H 07/22/18 10:02
[2018-07-23] MEDS: Enoxaparin 40 mg Syringe SC SCH (11:38)
[2018-07-23 15:44] VITALS: BP 114/71; PULSE 77; TEMP 97.5
--- NOTE | 2018-07-23 16:20 | CP.PCM.PN ---
Subjective - Date & Time of Evaluation Date of Evaluation: 07/23/18 Time of Evaluation: 12:45 - Subjective Subjective: Patient seen and examined Status post cardiac cath Pulmonary hypertension Desaturates on exertion Sleep study as outpatient Home oxygen Follow-up in the office Continue present treatment Objective - Vital Signs/Intake and Output Vital Signs (last 24 hours): Temp Pulse Resp BP Pulse Ox 97.5 F L 77 20 114/71 95 07/23/18 15:00 07/23/18 15:00 07/23/18 15:00 07/23/18 15:00 07/23/18 15:00 - Medications Medications: Current Medications Aspirin (Aspirin Chewable) 81 mg PO DAILY [facility] Last Admin: 07/23/18 10:25 Dose: 81 mg Enoxaparin Sodium (Lovenox) 40 mg SC DAILY [facility] Last Admin: 07/23/18 11:38 Dose: 40 mg Glimepiride (Amaryl) 2 mg PO ACB [facility] Last Admin: 07/23/18 08:16 Dose: 2 mg Insulin Human Regular (Novolin R) 0 unit SC ACHS [facility] PRN Reason: Protocol Last Admin: 07/23/18 12:30 Dose: Not Given Lisinopril (Zestril) 20 mg PO DAILY [facility] Last Admin: 07/23/18 10:25 Dose: 20 mg Metformin HCl (Glucophage) 1,000 mg PO BIDCC [facility] Last Admin: 07/21/18 17:47 Dose: 1,000 mg Rosuvastatin Calcium (Crestor) 10 mg PO HS [facility] Last Admin: 07/22/18 22:36 Dose: 10 mg - Labs Labs: 07/23/18 07:05 07/23/18 07:05 PT 11.3 SECONDS (9.7-12.2) 07/22/18 10:02 INR 1.0 07/22/18 10:02 APTT 41 SECONDS (21-34) H 07/22/18 10:02 Assessment and Plan (1) Dyspnea Status: Chronic
--- NOTE | 2018-07-23 16:27 | CP.PCM.PN ---
<MalickYvrosecordell - Last Filed: 07/23/18 16:53> Subjective - Date & Time of Evaluation Date of Evaluation: 07/23/18 Time of Evaluation: 10:11 - Subjective Subjective: PGY 3 Cardiology Progress Note- Dr. Louis's service Patient seen and examined in no apparent acute distress. Patient states that she ambulated about the hallway with physical therapy team this morning without feeling short of breath. She denies chest pain, palpitations, nausea, vomiting, diarrhea, headaches or paresthesias at this time. Objective - Vital Signs/Intake and Output Vital Signs (last 24 hours): Temp Pulse Resp BP Pulse Ox 97.5 F L 77 20 114/71 95 07/23/18 15:00 07/23/18 15:00 07/23/18 15:00 07/23/18 15:00 07/23/18 15:00 - Medications Medications: Current Medications Aspirin (Aspirin Chewable) 81 mg PO DAILY [facility] Last Admin: 07/23/18 10:25 Dose: 81 mg Enoxaparin Sodium (Lovenox) 40 mg SC DAILY [facility] Last Admin: 07/23/18 11:38 Dose: 40 mg Glimepiride (Amaryl) 2 mg PO ACB [facility] Last Admin: 07/23/18 08:16 Dose: 2 mg Insulin Human Regular (Novolin R) 0 unit SC [facility] PRN Reason: Protocol Last Admin: 07/23/18 12:30 Dose: Not Given Lisinopril (Zestril) 20 mg PO DAILY [facility] Last Admin: 07/23/18 10:25 Dose: 20 mg Metformin HCl (Glucophage) 1,000 mg PO BIDCC [facility] Last Admin: 07/21/18 17:47 Dose: 1,000 mg Rosuvastatin Calcium (Crestor) 10 mg PO HS [facility] Last Admin: 07/22/18 22:36 Dose: 10 mg - Labs Labs: 07/23/18 07:05 07/23/18 07:05 PT 11.3 SECONDS (9.7-12.2) 07/22/18 10:02 INR 1.0 07/22/18 10:02 APTT 41 SECONDS (21-34) H 07/22/18 10:02 - Constitutional Appears: Non-toxic, No Acute Distress - Head Exam Head Exam: ATRAUMATIC, NORMAL INSPECTION - Eye Exam Eye Exam: EOMI, Normal appearance, PERRL Pupil Exam: NORMAL ACCOMODATION - ENT Exam ENT Exam: Mucous Membranes Moist - Neck Exam Neck Exam: Full ROM - Respiratory Exam Respiratory Exam: Clear to Ausculation Bilateral, NORMAL BREATHING PATTERN - Cardiovascular Exam Cardiovascular Exam: +S1, +S2 - GI/Abdominal Exam GI & Abdominal Exam: Soft, Normal Bowel Sounds - Extremities Exam Extremities Exam: Full ROM - Back Exam Back Exam: NORMAL INSPECTION - Neurological Exam Neurological Exam: Alert, Awake, Oriented x3 - Psychiatric Exam Psychiatric exam: Normal Affect, Normal Mood - Skin Skin Exam: Dry, Warm Assessment and Plan (1) Dyspnea Status: Chronic (2) Diabetes mellitus Status: Chronic (3) Prophylactic measure Status: Acute - Assessment and Plan (Free Text) Assessment: Dyspnea Assessment & Plan: SINGH negative x 3 BNP- 637 negative EKG shows NSR at this time with signs of prior inferior infarct . Prior EKGs reviewed in the record as far back as 2011 and 2008 which show similar changes. In light of continued dyspnea with activity, Nuclear stress testing 07/21-Negative F/U Cath 07/22 revealed normal coronary arteries Echo - On prelim view- there are signs of questionable dilation of ascending aorta. EF greater than 56%. LV mildly dilated. Normal Bi- ventricular function. LA borderline dilated. Trace aortic regurgitation. Moderate tricuspid regurg. Mild pulm HTN noted. Aortic root displays mild-moderate sclerocalcific changes. No pericardial effusion. Refer to complete report. Chest XRAY performed- haziness noted in the lower lung hodgson. Costophrenic angles not clearly noted. Chest CT- Trace right pleural effusion noted. Cardiomegaly noted. No appreciable pulmonary emboli noted. There are signs of questionable dilation of thoracic aorta. After speaking with Radiologist on 07/21, aorta does appear dilated to approx 4.3 cm. Patient requires [address] scan surveillance. Elevate height of bed. Status: Chronic Diabetes mellitus Assessment & Plan: Metformin 1,000 mg PO BID Glimepiride 2 mg PO daily Zestril 20 mg daily Accuchecks Status: Chronic Prophylactic measure Assessment & Plan: SCDs No GI Prophylaxis indicated at this time Status: Acute <Eddie Louis - Last Filed: 07/23/18 20:19> Objective - Vital Signs/Intake and Output Vital Signs (last 24 hours): Temp Pulse Resp BP Pulse Ox 97.5 F L 77 20 114/71 95 07/23/18 15:00 07/23/18 15:00 07/23/18 15:00 07/23/18 15:00 07/23/18 15:00 - Labs Labs: 07/23/18 07:05 07/23/18 07:05 PT 11.3 SECONDS (9.7-12.2) 07/22/18 10:02 INR 1.0 07/22/18 10:02 APTT 41 SECONDS (21-34) H 07/22/18 10:02 Assessment and Plan - Assessment and Plan (Free Text) Assessment: Patient seen and evaluated personally by me Plan of care d/w the Resident and as documented 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
--- NOTE | 2018-07-23 18:00 | PN ---
Copied To: Bhargav Eden MD Attending MD: Bhargav Eden MD DATE: 07/23/2018 SUBJECTIVE: The patient seen. The patient is doing much better. The patient wants to go home, but expressing desire to know the result of her diagnostic tests, especially the cardiac cath. I told her to ask Dr. Louis to explain to her the result of the cardiac catheterization procedure, which was done by Dr. Louis. PHYSICAL EXAMINATION: VITAL SIGNS: Temperature 97.9, pulse rate is 88, blood pressure 159/94, respirations 20, oxygen saturation 95%. GENERAL: Since the patient is seen in her room, feeling much better. She states she wants to go home, seen with . SKIN: No diaphoresis. HEENT: No headache. No dizziness. NECK: Supple. RESPIRATORY: No dyspnea. CARDIOVASCULAR: No chest pain. GASTROINTESTINAL: She is eating well. EXTREMITIES: The patient is ambulating better. MUSCULOSKELETAL: Weakness improving. NEUROLOGICAL: Alert and oriented x3. GENITOURINARY: No urinary complaints. MENTAL STATUS: An elderly female who looks stated age, oriented x3. Mood is much calmer. Affect is reactive. Speech is spontaneous. Thought process coherent. Thought content, the patient wants to go home. The patient wants to know the result of her diagnostic tests, especially the cardiac cath. Attention and memory seem to be fair. Insight and fair. Impulse control is fair. IMPRESSION: Anxiety disorder, not otherwise specified. PLAN AND RECOMMENDATIONS: The patient is seen. Continue present management. Continue treatment plan. The patient psych barrios is stable for discharge. The patient; however, was asking if the results of the diagnostic tests can be explained to her, so the patient will know the result of the test. Bhargav Eden MD
--- NOTE | 2018-07-24 15:46 | DS ---
Copied To: Pan Marion MD Attending MD: Pan Marion MD ADMISSION DIAGNOSES: Chest pain and shortness of breath. DISCHARGE DIAGNOSES: Severe pulmonary hypertension, hyperlipidemia, systemic hypertension. HOSPITAL COURSE: This is a 72-year-old -Serbian female with history of chest pain, shortness of breath on exertion at rest. The patient was admitted to the floor. OK was ruled out by three sets of negative cardiac enzymes. Echocardiogram was normal. The patient really did not have any significant clinical finding; however, when she underwent cardiac catheterization, she was found to have severe pulmonary hypertension and she required pulmonary evaluation. She has been discharged with outpatient followup. CONDITION UPON DISCHARGE: Stable. LABORATORY DATA: WBC 5.8, hemoglobin 13.2, hematocrit 39.9, platelets 260. Sodium 142, potassium 4.3, chloride 103, bicarb 26, BUN 14, creatinine 0.7. PLAN: The patient is clinically stable. She has been discharged. She will be followed up as outpatient. Pan Marion MD
--- NOTE | 2018-07-25 23:56 | CARDCATH ---
Copied To: Eddie Louis MD Attending MD: Eddie Louis MD PROCEDURE DATE: 07/22/2018 PROCEDURES: 1. Left and right heart catheterization. 2. Coronary angiogram. 3. Aortic root angiogram. CLINICAL INDICATIONS: 1. Dyspnea on minimal exertion. 2. Pulmonary hypertension. 3. Hyperlipidemia. 4. Obesity. 5. Hypertension. REFERRING PHYSICIAN: 1. Pan Marion MD 2. David Askew MD. PERFORMING PHYSICIAN: Eddie Louis MD DESCRIPTION OF PROCEDURE: After informed consent, the patient was prepped and draped in the usual sterile fashion. Lidocaine 2% was given in the right hand for local anesthesia. Using micropuncture technique, a 6-Faroese sheath was introduced into the right common femoral artery . Bellwood-Skip catheter inserted into pulmonary artery. Oxygen saturations and right heart pressures were measured. A JL4 6-Faroese diagnostic catheter engaged into left main coronary artery. Contrast injected and left coronary angiogram was done. JR4 6-Faroese diagnostic catheter crossed into the left ventricle. LV end-diastolic pressure measured. Contrast injected and LV angiogram was done. Then, the catheter was pulled back. Gradient across the aortic valve was measured. Using the same catheter, right coronary artery was engaged. Contrast injected and right coronary angiogram was done. Using a pigtail catheter, aortic root angiogram was done. The patient tolerated the procedure well. Postprocedure, Mynx closure device deployed in the right groin with excellent hemostasis. Radiological supervision and radiological interpretations of the coronary imaging was done. FINDINGS OF THE LEFT HEART CATHETERIZATION: 1. Left main coronary artery is patent. 2. LAD and diagonal branches are patent. 3. Left circumflex and obtuse marginal branches are patent. 4. Right coronary artery is dominant and patent. 5. LV ejection fraction is approximately 60%. No wall motion abnormalities noted. EDP is 20. No gradient across the aortic valve. 6. Aortic root angiogram revealed dilated aortic root. 7. Right heart catheterization findings revealed hypoxemia and severe pulmonary hypertension. CONCLUSION: 1. Normal coronaries. 2. Normal left ventricular systolic function. 3. Hypoxemia. 4. Severe pulmonary hypertension. Eddie Louis MD [facility] # [id number]
== END 2018-07-23 16:28 | disposition home or self-care (01) | DRG 287 ==
LOC: C.ER 15:12 → C.9E 18:50 → C.6T 20:22 → OBSVTOIN 07-21 14:43
PROVIDERS: ADMIT Internal Medicine; ATTEND Internal Medicine
PROC: B3101ZZ Fluoroscopy of Thoracic Aorta using Low Osmolar Contrast (ICD-10-PCS; principal; 2018-07-22)
PROC: 4A023N8 Measurement of Cardiac Sampling and Pressure, Bilateral, Percutaneous Approach (ICD-10-PCS; 2018-07-22)
PROC: B2111ZZ Fluoroscopy of Multiple Coronary Arteries using Low Osmolar Contrast (ICD-10-PCS; 2018-07-22)
PROC: B2151ZZ Fluoroscopy of Left Heart using Low Osmolar Contrast (ICD-10-PCS; 2018-07-22)
DX: I27.20 Pulmonary hypertension, unspecified (principal); I71.2 Thoracic aortic aneurysm, without rupture; R09.02 Hypoxemia; I10 Essential (primary) hypertension; E78.5 Hyperlipidemia, unspecified; E11.9 Type 2 diabetes mellitus without complications